=== PATIENT | female | born 1990 | race Hispanic/Latino ===

== ENCOUNTER 2019-09-14 10:37 | Outpatient (CLI) | payer OTHER ==
--- NOTE | 2019-09-14 13:14 | ULT ---
OB ULTRASOUND: HISTORY: anatomy. FINDINGS: A single live intrauterine gestation was seen with measurements corresponding to an estimated gestati onal age of 21 weeks 4 days and RAMONE at 01/21/2020. The estimated weight measures 427 gm or 15 ou nces. measurements are as follows: BPD 5.17 cm, 21 weeks 5 days HC 18.76 cm, 21 weeks 1 day AC 15.90 cm, 21 weeks 1 day FL 3.79 cm, 22 weeks 1 day heart rate measures 158 b.p.m. Placenta is posteriorly located without evidence of placenta pr evia. DHEERAJ measures 15.3 cm. Cervix measures 3.4 cm in length. A 3-vessel cord, cord insertion, kidneys, bladder, stomach, 4-chamber heart, lateral ventricles , cerebellum, spine, lips/nose, upper and lower extremities are visualized. No definite abnorm alities are seen. IMPRESSION: Single live intrauterine of 21 weeks 4 days estimated gestational age and estimated date of delivery at 01/21/2020. POS: BRIDGETTE
== END 2019-09-14 10:38 | disposition home or self-care (01) ==
LOC: BICULT 10:37
PROVIDERS: ATTEND Family Medicine
DX: O09.92 Supervision of high risk pregnancy, unspecified, second trimester (principal); Z3A.21 21 weeks gestation of pregnancy
CPT/HCPCS: 76805

== ENCOUNTER 2020-01-03 07:28 | Day surgery (SDC) | payer OTHER ==
[2020-01-03] MEDS ORDERED: hydrALAZINE 20 MG/ML VIAL SLOW IVP PRN (09:00)
--- NOTE | 2020-01-03 10:13 | HP ---
PRIMARY OB: Benitez Mcgowan MD HISTORY OF PRESENT ILLNESS: The patient is a 29-year-old G2, P1 female with an intrauterine at 37 weeks gestation, presenting to Labor and Delivery after waking up this morning and having a little bit of bloody show that she noticed when she went to the bathroom. She reports that she came because she had some more bleeding, though she denies needing to use a pad. She reports she is having contractions on occasion, but not causing her pain. The patient reports a history of prior for failed induction. The patient states that she could not dilate past 2 cm. The patient denies fever, headache, cough, chest pain, shortness of breath, nausea, vomiting, diarrhea, or constipation. She denies any new rashes, leaking of fluid. PAST MEDICAL HISTORY: Negative. PAST SURGICAL HISTORY: She has had 1 prior . ALLERGIES: NO KNOWN DRUG ALLERGIES. MEDICATIONS: vitamins. SOCIAL HISTORY: Denies drug, alcohol, or tobacco use. OB LABS: Unavailable at time of dictation. REVIEW OF SYSTEMS: Per HPI. PHYSICAL EXAMINATION: VITAL SIGNS: Blood pressure 111/76, heart rate 74, saturating 95% on room air, and temperature 98.1. GENERAL: She appears to be in no acute distress. She is alert, oriented, cooperative, and pleasant to interact with. HEENT: Head is normocephalic and atraumatic. LUNGS: Clear to auscultation bilaterally. HEART: Has regular rate and rhythm. ABDOMEN: Gravid, soft, nontender to palpation. EXTREMITIES: Nontender and nonedematous. PELVIC: Vulva is without masses, lesions, or erythema. She does have just a very small amount of very thick mucusy show on her labia that is dark with blood staining. On speculum exam, vagina is moist. Cervix is visibly closed. Again, she has some really dark blood stained thick mucus at the os, but no active bleeding. She has otherwise normal appearing discharge. The cervix is closed on digital exam and soft. No parts palpable through the vaginal wall. heart tracing shows the fetus with a baseline in the 140s with moderate long-term variability, positive 15 x 15 accelerations, no decelerations. The patient is having some irritability on the tocometer, but again visibly the patient is having no visible affect by them. ASSESSMENT AND PLAN: The patient is a 29-year-old G2, P1 female presenting for a bloody show. The patient has a reactive NST and overall reassuring tracing. The patient has been given reassurance. She has an appointment today with Dr. Mcgowan that we have encouraged that she keep. She also states that she is scheduled for a on the . Job ID: [id number]
== END 2020-01-03 08:55 | disposition home health service (06) ==
LOC: L&D/OP 07:28
PROVIDERS: ATTEND Family Medicine
DX: O46.93 Antepartum hemorrhage, unspecified, third trimester (principal); O34.219 Maternal care for unspecified type scar from previous cesarean delivery; Z3A.37 37 weeks gestation of pregnancy
CPT/HCPCS: 99283

== ENCOUNTER 2020-01-05 15:05 | Day surgery (SDC) | payer OTHER ==
[2020-01-05 15:48] VITALS: BMI 29.2
[2020-01-05] MEDS ORDERED: hydrALAZINE 20 MG/ML VIAL SLOW IVP PRN (16:24)
--- NOTE | 2020-01-05 17:12 | PRG ---
DATE OF SERVICE: 01/05/2020 TIME OF SERVICE: 16:15. PRESENTING COMPLAINT: Contractions at 35 to 36 weeks. HISTORY OF PRESENT ILLNESS: Ms. Junior Godinez is a 29-year-old 2, para 1, with a stated EDC that places her at 35 weeks gestation. We have no antepartum record available for her on the unit. She has a prior section and complains of contractions. She denies leakage of fluid. She is in several days ago for vaginal bleeding, has had none since. She reports an active fetus. 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 No other antepartum records available. PAST MEDICAL HISTORY: None. PAST SURGICAL HISTORY: C-sections. ALLERGIES: DENIES. MEDICATIONS: vitamins. SOCIAL HISTORY: Denies tobacco, alcohol, or IV drug use. FAMILY HISTORY: Noncontributory. REVIEW OF SYSTEMS: Noncontributory. PHYSICAL EXAMINATION: GENERAL: female, resting comfortably. No apparent distress. VITAL SIGNS: Temperature 98.2, pulse 85, respirations 18, and blood pressure 118/72. HEENT: Within normal limits. LUNGS: Clear to auscultation bilaterally. HEART: Regular rate and rhythm. ABDOMEN: Soft and nontender. Fundal height 36. FHTs 140s. : Vulva without lesions. Vaginal exam by RN was fingertip to 1, 25, and -3, cephalic, ballots to these. EXTREMITIES: No clubbing, cyanosis, or edema. LABORATORY STUDIES: monitoring is carried out for greater than 30 minutes. Contractions q.15 to 20 minutes were noted. Positive accelerations, no decelerations, category 1 heart rate tracing. IMPRESSION: 35 weeks gestation, prior delivery. No evidence of labor. PLAN: Reassurance. Keep scheduled followup with Dr. Mcgowan on 01/09. ER precautions. Job ID: [id number]
== END 2020-01-05 16:30 | disposition home or self-care (01) ==
LOC: L&D/OP 15:05
PROVIDERS: ATTEND Family Medicine
DX: O47.03 False labor before 37 completed weeks of gestation, third trimester (principal); O34.219 Maternal care for unspecified type scar from previous cesarean delivery; Z3A.35 35 weeks gestation of pregnancy

== ENCOUNTER 2020-01-06 09:38 | Inpatient (IN) | payer OTHER, SELFPAY ==
[2020-01-06] MEDS ORDERED: Ondansetron PF 4 MG/2 ML Vial IVP PRN ×3 (09:50→17:33)
[2020-01-06] MEDS ORDERED: HYDROcodone/Acetaminophen 5/325 mg Tablet PO PRN ×4 (09:50→17:33)
[2020-01-06] MEDS ORDERED: hydrALAZINE 20 MG/ML VIAL SLOW IVP PRN ×2 (09:50→17:33)
[2020-01-06] MEDS ORDERED: Ibuprofen 800 MG TAB PO PRN (09:50)
[2020-01-06] MEDS ORDERED: Lidocaine 1% (PF) 30 ML VIAL SC PRN (09:50)
[2020-01-06] MEDS ORDERED: NS / Oxytocin 40 units/1000ml 1,000 ML IV PRN (09:50)
[2020-01-06] MEDS ORDERED: MORPHINE 5 MG/10 ML PF VIAL ONE (09:56)
[2020-01-06] MEDS ORDERED: Ondansetron PF 4 MG/2 ML Vial ONE (09:57)
[2020-01-06] MEDS ORDERED: Oxytocin 10 UNITS/ML VIAL ONE (09:57)
[2020-01-06] MEDS ORDERED: PHENYLEPHRINE-NS 100 MCG/ML 10 ML SYRINGE ONE (09:57)
[2020-01-06 09:59] VITALS: BMI 27.3
[2020-01-06] MEDS ORDERED: Bicitra 30 ML UDCUP PO SCH (10:00)
[2020-01-06] MEDS ORDERED: CEFAZOLIN 2 GM in Premix Bag 1 BAG IVPB SCH (10:00)
[2020-01-06] MEDS ORDERED: Azithromycin 500 MG in Sodium Chloride 0.9% 250 ML 250 ML IVPB SCH (10:00)
[2020-01-06] MEDS ORDERED: Lactated Ringer's 1,000 ML IV SCH ×2 (10:00)
[2020-01-06 10:08] LABS: Hemoglobin 12.6 g/dL (12.0-16.0); Mean Corpuscular HGB CONC 33.8 g/dL (32.0-36.0); Mean Corpuscular Hemoglobin 27.3 pg (27.0-31.0); Mean Corpuscular Volume 80.7 fL (78.0-98.0); Platelet Count 270 thou/uL (130-400); RBC Distribution Width 12.9 % (11.5-14.5); White Blood Cell (WBC) Count 16.2 thou/uL (4.8-10.8)
[2020-01-06] MEDS ORDERED: Lidocaine 1% (PF) 30 ML VIAL ONE (10:15)
[2020-01-06] MEDS ORDERED: NS / Oxytocin 40 units/1000ml 1,000 ML ONE (10:15)
[2020-01-06 10:45] LABS: Syphilis Antibody Nonreactive (Nonreactive); Syphilis Antibody Index 0.04 S/CO (<1.00 Non-Reactive)
[2020-01-06 11:04] LABS: HBSAg Index 0.11 S/CO (0-0.99); Hep B Surf Ag Non-Reactive S/CO (NonReactive)
[2020-01-06] MEDS ORDERED: Fentanyl 4 mcg/Bup 0.1% Cadd 100 ML ONE (11:37)
[2020-01-06] MEDS ORDERED: Fentanyl 4 mcg/Bupivacaine 0.1% Cassette 100 ML EPIDURAL SCH (12:11)
[2020-01-06] MEDS ORDERED: diphenhydrAMINE 50 MG/ML VIAL IVP PRN (12:11)
[2020-01-06] MEDS ORDERED: Acetaminophen 325 MG TAB PO PRN (12:11)
[2020-01-06] MEDS ORDERED: EPHEDRINE 25 MG/5 ML SYRINGE SLOW IVP PRN (12:11)
[2020-01-06] MEDS ORDERED: Naloxone HCl 0.4 mg/ml Vial IVP PRN ×2 (12:11)
[2020-01-06] MEDS ORDERED: Lactated Ringer's 500 ML IV PRN (12:11)
[2020-01-06] MEDS ORDERED: Promethazine HCl 25 MG/ML VIAL IM PRN ×2 (12:11→17:33)
[2020-01-06] MEDS ORDERED: Communication Order-Pharmacy FS SCH (12:15)
[2020-01-06] MEDS ORDERED: NS / Oxytocin 40 units/1000ml 1,000 ML IV SCH (17:33)
[2020-01-06] MEDS ORDERED: Lanolin Ointment 7 GM TUBE TOP PRN (17:33)
[2020-01-06] MEDS ORDERED: Bisacodyl 10 MG SUPP PR PRN (17:33)
[2020-01-06] MEDS ORDERED: Adacel (T-DAP) 0.5 ML SYRINGE IM ONE (17:33)
[2020-01-06] MEDS ORDERED: Milk Of Magnesia 30 ML UDCUP PO PRN (17:33)
[2020-01-06] MEDS: Ferrous Sulfate 325 MG TAB PO SCH (18:53)
[2020-01-06] MEDS: Ibuprofen 800 MG TAB PO SCH (22:15)
[2020-01-06] MEDS: Docusate Calcium (SURFAK) 240 MG CAP PO SCH (22:15)
[2020-01-07 06:39] LABS: Hemoglobin 10.5 g/dL (12.0-16.0); Mean Corpuscular HGB CONC 33.5 g/dL (32.0-36.0); Mean Corpuscular Hemoglobin 27.6 pg (27.0-31.0); Mean Corpuscular Volume 82.5 fL (78.0-98.0); Mean Platelet Volume 7.5 fL (7.4-10.4); Platelet Count 219 thou/uL (130-400); RBC Distribution Width 13.2 % (11.5-14.5); Red Blood Cell (RBC) Count 3.79 mill/uL (4.20-5.40); White Blood Cell (WBC) Count 14.6 thou/uL (4.8-10.8)
[2020-01-07] MEDS: Ibuprofen 800 MG TAB PO SCH ×3 (06:50→21:04)
[2020-01-07] MEDS: Prenatal Vitamin 1 TAB PO SCH (09:39)
[2020-01-07] MEDS: Docusate Calcium (SURFAK) 240 MG CAP PO SCH ×2 (09:39→21:04)
[2020-01-07] MEDS: Ferrous Sulfate 325 MG TAB PO SCH ×2 (09:39→16:35)
[2020-01-08] MEDS: Ibuprofen 800 MG TAB PO SCH ×2 (05:02→14:20)
[2020-01-08] MEDS: Ferrous Sulfate 325 MG TAB PO SCH (07:10)
[2020-01-08] MEDS: Prenatal Vitamin 1 TAB PO SCH (08:26)
[2020-01-08] MEDS: Docusate Calcium (SURFAK) 240 MG CAP PO SCH (08:26)
[2020-01-08 08:36] VITALS: BP 97/56; TEMP 97.8
== END 2020-01-08 16:50 | disposition home or self-care (01) | DRG 807 ==
LOC: L&D/OP 09:38 → L&D 14:31 → 3SW 18:03
PROVIDERS: ADMIT Family Medicine; ATTEND Family Medicine
PROC: 10E0XZZ Delivery of Products of Conception, External Approach (ICD-10-PCS; principal; 2020-01-07)
PROC: 10907ZC Drainage of Amniotic Fluid, Therapeutic from Products of Conception, Via Natural or Artificial Opening (ICD-10-PCS; 2020-01-07)
PROC: 0W8NXZZ Division of Female Perineum, External Approach (ICD-10-PCS; 2020-01-07)
DX: O34.211 Maternal care for low transverse scar from previous cesarean delivery (principal); Z37.0 Single live birth; Z3A.37 37 weeks gestation of pregnancy
CPT/HCPCS: 36415; 51702; 85027; 86780; 86850; 86900; 86901; 87340; 99282; 99283; 99285; J0690; J2001; J2274; J2405; J2590